=== PATIENT | male | born 1950 | race Caucasian/White ===

== ENCOUNTER 2025-03-09 14:36 | Observation (INO) | payer MEDICARE, OTHER ==
[~2025-03-09] VITALS: Ht 172.7 cm; Wt 90.7 kg
[~2025-03-09 14:36] MED LIST: ACET32TAB PO; AMLO1TAB24 PO; ATOR40TA75 PO; BETA115CR TOP; CARB25TA16 PO; CARB25TA9 PO; COLA100C5 PO; DICL1PAT6 TOP; DICL50TAB PO; MEMA10TA PO; METF-839 PO; MOM30SS2 PO; MUCI600T31 PO; OCUVTAB4 PO; TAMS-18 PO
[2025-03-09 15:29] LABS: BASO # 0.0 10^3/uL (0.0-0.2); BASO % 0.4 % (0.0-1.0); EOS # 0.1 10^3/uL (0.0-0.5); EOS % 0.9 % (0.0-3.0); LYMPH # 0.8 10^3/uL (1.5-5.0); LYMPH % 7.2 % (24.0-44.0); MONO # 0.9 10^3/uL (0.0-0.8); MONO % 8.7 % (2.0-8.0); NEUTROPHILS # 8.6 10^3/uL (1.5-8.5); NEUTROPHILS % 82.1 % (36.0-66.0); PLATELET COUNT, AUTOMATED 209 10^3/uL (150-450)
[2025-03-09 15:53] LABS: INR 0.99
[2025-03-09 15:57] LABS: CK-MB VALUE MASS < 1.0 NG/ML (<3.6)
[2025-03-09 15:59] LABS: ALT/SGPT 9 U/L (7.0-40); AST/SGOT 17 U/L (<34); CALCIUM LEVEL 8.7 MG/DL (8.3-10.6); CARBON DIOXIDE LEVEL 24 MMOL/L (20-31); CHLORIDE LEVEL 105 MMOL/L (98-107); CREATININE FOR GFR 0.90 MG/DL (0.70-1.30); GLOMERULAR FILTRATION RATE 88.5 (>42); MAGNESIUM LEVEL 1.5 MG/DL (1.8-2.4); POTASSIUM SERUM 4.2 MMOL/L (3.5-5.1); SODIUM LEVEL 142 MMOL/L (136-145)
[2025-03-09 16:01] LABS: FREE T4 1.38 NG/DL (0.89-1.76)
[2025-03-09 16:04] LABS: CPK CREATINE PHOSPHOKINASE 30 U/L (46-171)
[2025-03-09] MEDS: amLODIPine 5 MG TAB PO ONE (16:04)
[2025-03-09] MEDS: MAGNESIUM OXIDE 400 MG TAB PO ONE (17:05)
[2025-03-09 17:09] LABS: CK-MB VALUE MASS < 1.0 NG/ML (<3.6); CPK CREATINE PHOSPHOKINASE 42 U/L (46-171)
[2025-03-09] MEDS ORDERED: GLUCOSE 4 GM CHEW PO PRN ×2 (18:50→18:55)
[2025-03-09] MEDS ORDERED: GLUCAGON INJ 1 MG VIAL SC PRN ×2 (18:50→18:55)
[2025-03-09] MEDS ORDERED: DEXTROSE 50% 50 ML SYRINGE IV PRN ×2 (18:50→18:55)
[2025-03-09] MEDS: INSULIN LISPRO (NovoLOG) PER UNIT SC SCH (20:49)
[2025-03-09 22:13] VITALS: BP 161/79; TEMP 98.3; O2SAT 95
[2025-03-09] MEDS: NS (Normal Saline) 0.9% 1,000 ML IV SCH (23:01)
[2025-03-10] MEDS ORDERED: ACET1TAB55 PO (00:18)
[2025-03-10] MEDS ORDERED: AMLO1TAB24 PO (00:18)
[2025-03-10] MEDS ORDERED: METF500T13 PO (00:22)
[2025-03-10] MEDS ORDERED: HOME MED LIST COMPLETE! XX SCH (00:25)
[2025-03-10 03:40] VITALS: BP 184/84; TEMP 98; O2SAT 96
[2025-03-10 04:14] VITALS: BP 178/88
[2025-03-10] MEDS ORDERED: INSULIN LISPRO (NovoLOG) PER UNIT SC SCH ×2 (07:30)
[2025-03-10] MEDS ORDERED: PILL CUTTER 1 EACH XX PRN (08:00)
[2025-03-10] MEDS: INSULIN LISPRO (NovoLOG) PER UNIT SC SCH (09:19)
[2025-03-10] MEDS: CARBIDOPA/LEVODOPA 25 MG/100 MG PO SCH (09:20)
[2025-03-10] MEDS: METOPROLOL SUCC. 50 MG *XL* TAB PO SCH (09:20)
[2025-03-10] MEDS: MULTIVITAMINS/MINERALS THERAP 1 TAB PO SCH (09:21)
[2025-03-10] MEDS: metFORMIN 500 MG TAB PO SCH (09:21)
[2025-03-10] MEDS: MAGNESIUM OXIDE 400 MG TAB PO SCH (11:22)
[2025-03-10 12:00] VITALS: BP 109/67; TEMP 98.3; O2SAT 95
[2025-03-10] MEDS: ACETAMINOPHEN 325 MG TAB PO PRN (15:50)
[2025-03-10 21:20] VITALS: BP 171/84; TEMP 98.5; O2SAT 95
[2025-03-10 21:27] VITALS: BP 162/80
[2025-03-10] MEDS: MEMANTINE 5 MG TABLET PO SCH (21:35)
[2025-03-10] MEDS: ATORVASTATIN 20 MG TAB PO SCH (21:36)
[2025-03-11 04:15] VITALS: BP 169/78; TEMP 98.2; O2SAT 91
[2025-03-11 10:50] VITALS: BP 189/94; TEMP 98.6; O2SAT 95
[2025-03-11 11:49] VITALS: BP 173/84; TEMP 97.8; O2SAT 95
[2025-03-12] VITALS (11 sets, daily range): BP systolic 129–200; BP diastolic 66–102; TEMP 98.2–98.4; O2SAT 95–96
[2025-03-12] MEDS: amLODIPine 5 MG TAB PO ONE (04:08)
[2025-03-12] MEDS: **hydrALAZINE HCL** 25 MG TAB PO SCH ×2 (05:38→17:37)
[2025-03-12] MEDS: amLODIPine 5 MG TAB PO SCH (22:10)
[2025-03-13 05:32] VITALS: BP 172/80; TEMP 98; O2SAT 95
[2025-03-13 13:19] VITALS: BP 173/85; TEMP 98.6; O2SAT 98
[2025-03-13] MEDS: BENZONATATE 100 MG CAPSULE PO SCH (17:18)
[2025-03-13 18:51] VITALS: BP 138/73
[2025-03-13] MEDS: amLODIPine 10 MG TAB PO SCH (22:08)
[2025-03-13] MEDS: guaiFENesin ER TABLET 600 MG TAB PO SCH (22:52)
[2025-03-14 04:33] VITALS: BP 131/65; TEMP 98.7; O2SAT 91
[2025-03-14] MEDS: CLOTRIMAZOLE 1% TOPICAL CREAM 30 GM TOP SCH (08:38)
[2025-03-14 20:18] VITALS: BP 156/83; TEMP 99.1; O2SAT 95
[2025-03-14] MEDS: guaiFENesin DM LIQ 10ML UD PO PRN (23:14)
[2025-03-15 06:26] VITALS: BP 128/70; TEMP 98.5; O2SAT 94
[2025-03-15 06:29] LABS: BASO # 0.1 10^3/uL (0.0-0.2); BASO % 0.6 % (0.0-1.0); EOS # 0.5 10^3/uL (0.0-0.5); EOS % 4.5 % (0.0-3.0); LYMPH # 2.2 10^3/uL (1.5-5.0); LYMPH % 19.4 % (24.0-44.0); MONO # 0.6 10^3/uL (0.0-0.8); MONO % 5.6 % (2.0-8.0); NEUTROPHILS # 7.5 10^3/uL (1.5-8.5); NEUTROPHILS % 66.8 % (36.0-66.0); PLATELET COUNT, AUTOMATED 242 10^3/uL (150-450)
[2025-03-15 07:02] LABS: ALT/SGPT < 9 U/L (7.0-40); AST/SGOT 19 U/L (<34); CALCIUM LEVEL 8.6 MG/DL (8.3-10.6); CARBON DIOXIDE LEVEL 26 MMOL/L (20-31); CHLORIDE LEVEL 106 MMOL/L (98-107); CREATININE FOR GFR 0.89 MG/DL (0.70-1.30); GLOMERULAR FILTRATION RATE 88.8 (>42); MAGNESIUM LEVEL 1.6 MG/DL (1.8-2.4); POTASSIUM SERUM 3.5 MMOL/L (3.5-5.1); SODIUM LEVEL 144 MMOL/L (136-145)
[2025-03-15 08:00] VITALS: BP 121/81; TEMP 97.7; O2SAT 90
[2025-03-15] MEDS: MAG SULF 1GM/100ML (MAG RUN) 1 GM in IV 1 EA IV SCH (10:00)
[2025-03-15] MEDS: POTASSIUM CHLORIDE 10MEQ SR TABLET PO ONE (10:28)
[2025-03-15] MEDS ORDERED: SENNA 8.6 MG TAB PO PRN (10:30)
[2025-03-15] MEDS ORDERED: MIRALAX *UNIT DOSE* 17 GM PACKET PO PRN (10:30)
[2025-03-15] MEDS ORDERED: MAGNESIUM OXIDE 400 MG TAB PO ONE (10:40)
[2025-03-15] MEDS: MIRALAX *UNIT DOSE* 17 GM PACKET PO ONE (11:35)
[2025-03-15] MEDS: MAGNESIUM OXIDE 400 MG TAB PO ONE (11:35)
[2025-03-15] MEDS: LACTULOSE 20 GM/30 ML SYRUP UDC PO ONE (13:20)
[2025-03-15] MEDS: HYDROCORTISONE 1% CREAM 30 GM TOP SCH (15:03)
[2025-03-15] MEDS ORDERED: MAGNESIUM OXIDE 400 MG TAB PO SCH (16:00)
[2025-03-15] MEDS: MAGNESIUM OXIDE 400 MG TAB PO SCH (20:27)
[2025-03-16 06:19] VITALS: BP 158/77; TEMP 99.4; O2SAT 93
[2025-03-17 06:11] VITALS: BP 146/78; TEMP 99; O2SAT 94
[2025-03-17 12:43] VITALS: BP 143/79
[2025-03-17] MEDS: ENOXAPARIN 40 MG/0.4 ML SYRINGE (J1650 PER 10MG) SC SCH (21:31)
[2025-03-18 00:11] VITALS: BP 139/77
[2025-03-18 04:36] VITALS: BP 130/71; TEMP 98.7; O2SAT 95
[2025-03-18 07:25] LABS: CALCIUM LEVEL 8.7 MG/DL (8.3-10.6); CARBON DIOXIDE LEVEL 26 MMOL/L (20-31); CHLORIDE LEVEL 105 MMOL/L (98-107); CREATININE FOR GFR 0.79 MG/DL (0.70-1.30); GLOMERULAR FILTRATION RATE > 90.0 (>42); MAGNESIUM LEVEL 1.7 MG/DL (1.8-2.4); POTASSIUM SERUM 3.8 MMOL/L (3.5-5.1); SODIUM LEVEL 142 MMOL/L (136-145)
[2025-03-19 03:37] VITALS: BP 126/65; TEMP 98.7; O2SAT 93
[2025-03-20 01:33] VITALS: BP 131/75; TEMP 98.3; O2SAT 95
[2025-03-20 06:36] VITALS: BP 139/75; TEMP 98.7; O2SAT 95
[2025-03-21 04:20] VITALS: BP 139/73; TEMP 98.3; O2SAT 95
[2025-03-21 08:55] VITALS: BP 92/58
[2025-03-21] MEDS: MULTIVITAMINS/MINERALS THERAP 1 TAB PO ONE (09:30)
[2025-03-21 12:51] VITALS: BP 134/75
[2025-03-21 20:53] VITALS: BP 101/60; TEMP 99; O2SAT 93
[2025-03-21] MEDS: amLODIPine 5 MG TAB PO SCH (20:56)
[2025-03-22 04:32] VITALS: BP 143/84; TEMP 98.7; O2SAT 95
[2025-03-22 20:50] VITALS: BP 99/59; TEMP 98.7; O2SAT 96
[2025-03-23 03:34] VITALS: BP 154/83; TEMP 98.3; O2SAT 95
[2025-03-23 21:02] VITALS: BP 117/63; TEMP 98.7; O2SAT 96
[2025-03-24 03:26] VITALS: BP 137/95; TEMP 99.8; O2SAT 92
[2025-03-24 06:00] VITALS: TEMP 97.4
[2025-03-24] MEDS: METOPROLOL SUCC. 50 MG *XL* TAB PO SCH (08:25)
[2025-03-25 03:11] VITALS: BP 142/80; TEMP 98.7; O2SAT 94
[2025-03-25 07:30] VITALS: BP 137/76; TEMP 98.1; O2SAT 94
[2025-03-25 12:30] VITALS: BP 141/77; TEMP 98.8; O2SAT 96
[2025-03-26 06:14] VITALS: BP 145/76; TEMP 98.6; O2SAT 95
[2025-03-26] MEDS ORDERED: AMLO-751 PO (08:55)
[2025-03-26] MEDS ORDERED: HYDR25TA87 PO (08:55)
[2025-03-26] MEDS ORDERED: MIRA3350 PO (08:55)
[2025-03-27 06:18] VITALS: BP 159/72; TEMP 98.6; O2SAT 96
[2025-03-27 08:04] VITALS: BP 117/63
== END 2025-03-27 10:43 ==
LOC: M ED 15:04 → M ED INP 19:39 → M MSPAV 22:07
PROVIDERS: ADMIT Internal Medicine; ATTEND Internal Medicine
DX: R53.1 Weakness (principal); G20.C Parkinsonism, unspecified; F02.80 Dementia in other diseases classified elsewhere, unspecified severity, without behavioral disturbance, psychotic disturbance, mood disturbance, and anxiety; Z99.3 Dependence on wheelchair; E83.42 Hypomagnesemia; Z91.81 History of falling; I10 Essential (primary) hypertension; E11.9 Type 2 diabetes mellitus without complications; E78.5 Hyperlipidemia, unspecified; D64.9 Anemia, unspecified; K59.00 Constipation, unspecified; R05.9 Cough, unspecified; M48.00 Spinal stenosis, site unspecified; Z98.61 Coronary angioplasty status; Z87.891 Personal history of nicotine dependence; Z88.8 Allergy status to other drugs, medicaments and biological substances; Z79.899 Other long term (current) drug therapy; Z79.84 Long term (current) use of oral hypoglycemic drugs; Z66 Do not resuscitate
CPT/HCPCS: 36415; 70450; 71045; 80048; 80053; 80076; 82550; 82553; 83735; 84439; 84443; 84484; 85025; 85610; 85730; 87486; 87581; 87633; 87798; 93005; 93041; 94760; 96372; 97112; 97161; 97530; 99285; G0378; J1650; J1815